=== PATIENT | female | born 1985 | race Caucasian/White ===

== ENCOUNTER 2018-11-20 20:29 | Emergency (ER) | payer SELFPAY ==
--- NOTE | 2018-11-20 20:46 | PDOC ---
Rapid Medical Evaluation Time Seen by Provider: 11/20/18 20:44 Medical Evaluation: Allergies Allergy/AdvReac Type Severity Reaction Status Date / Time No Known Allergies Allergy Verified 04/06/16 08:21 11/20/18 20:45 HIP: 4 weeks gravid with bleeding PV PE: Deferred ORDERS: LABS Discharge Disposition - Diagnosis Threatened - Referrals - Patient Instructions - Post Discharge Activity
[2018-11-20 20:48] VITALS: BP 125/58; PULSE 70; TEMP 99; BMI 33.2
[2018-11-20 22:00] LABS: BASO % 0.6 % (0-2.0); HEMATOCRIT 40.1 % (32.4-45.2); HEMOGLOBIN 13.4 GM/dL (10.7-15.3); LYMPH % 30.4 % (8-40); MCH 29.8 pg (25.7-33.7); MCHC 33.4 g/dl (32.0-36.0); MEAN CELL VOLUME 89.3 fl (80-96); MEAN PLT VOLUME 7.5 fl (7.5-11.1); MONO % 6.1 % (3.8-10.2); NEUT % 61.9 % (42.8-82.8); PLATELET COUNT 296 K/MM3 (134-434); RBC 4.49 M/mm3 (3.60-5.2); RDW 13.9 % (11.6-15.6); WHITE BLOOD COUNT 9.4 K/mm3 (4.0-10.0)
--- NOTE | 2018-11-20 22:02 | PDOC ---
History of Present Illness - General Chief Complaint: Vaginal Bleeding Stated Complaint: VAGINAL BLEEDING Time Seen by Provider: 11/20/18 20:44 History Source: Patient Exam Limitations: No Limitations - History of Present Illness Travel History: No Initial Comments: 11/20/18 22:03 HISTORY OF PRESENT ILLNESS: 33-year-old prima presents emergency department for evaluation of lower back pain and vaginal bleeding starting today. Patient reports her last menstrual period was 10/07 which she has irregular menses requiring oral contraception for menses regulation. Patient reports dysuria but denies hematuria, urinary frequency. Patient denies any bowel irregularities or rectal bleeding. No recent travel or sick contacts. PAST MEDICAL HISTORY: Denies past medical history SURGICAL HISTORY: Denies ALLERGIES: No known drug allergies REVIEW OF SYSTEMS General/Constitutional: Denies fever or chills. Denies weakness, weight change. HEENT: Denies change in vision. Denies ear pain or discharge. Denies sore throat. Cardiovascular: Denies chest pain or shortness of breath. Respiratory: Denies cough, wheezing, or hemoptysis. Gastrointestinal: Denies nausea, vomiting, diarrhea or constipation. Denies rectal bleeding. Genitourinary: see HPI Musculoskeletal: Denies joint or muscle swelling or pain. Denies neck or back pain. Skin and breasts: Denies rash or easy bruising. Neurologic: Denies headache, vertigo, loss of consciousness, or loss of sensation. Psychiatric: Denies depression or anxiety. Endocrine: Denies increased thirst. Denies abnormal weight change. Hematologic/Lymphatic: Denies anemia, easy bleeding, or history of blood clots. Allergic/Immunologic: Denies hives or skin allergy. Denies latex allergy. PHYSICAL EXAM General Appearance: Well-appearing, appropriately dressed. No apparent distress , no intoxication. Respiratory/Chest: Lungs CTAB. No shortness of breath, chest tenderness, respiratory distress, accessory muscle use. No crackles, rales, rhonchi, stridor , wheezing, dullness Cardiovascular: RRR. S1, S2. No JVD, murmur, bradycardia, tachycardia. Gastrointestinal/Abdominal: Normal bowel sounds. Abdomen soft, non-distended. No tenderness or rebound tenderness. No organomegaly, pulsatile mass, guarding, hernia, hepatomegaly, splenomegaly. Musculoskeletal/Extremities: Normal inspection. FROM of all extremities, normal capillary refill. Pelvis Stable. No CVA tenderness. No tenderness to extremities, pedal edema, swelling, erythema or deformity. Past History - Past Medical History Allergies/Adverse Reactions: Allergies Allergy/AdvReac Type Severity Reaction Status Date / Time No Known Allergies Allergy Verified 11/20/18 20:45 Home Medications: Ambulatory Orders Diphenhydramine HCl [Benadryl -] 25 mg PO Q6H #28 capsule 04/06/16 predniSONE [Deltasone -] 20 mg PO DAILY #4 tablet 04/06/16 Epinephrine [Epipen 2-Getachew] 0.3 mg IJ ASDIR PRN #1 kit 04/07/16 Ranitidine HCl [Zantac] 150 mg PO BID PRN #14 tablet 04/07/16 predniSONE [Deltasone -] 60 mg PO DAILY #12 tablet 04/07/16 95/Iron Fum/Folic/Dha [ + Dha Combo Pack] 1 each PO DAILY #30 combo..pkg 11/20/18 COPD: No - Suicide/Smoking/Psychosocial Hx Smoking History: Never smoked Hx Alcohol Use: No Drug/Substance Use Hx: No Substance Use Type: None *Physical Exam - Vital Signs Last Vital Signs Temp Pulse Resp BP Pulse Ox 99 F 70 18 125/58 L 97 11/20/18 20:45 11/20/18 20:45 11/20/18 20:45 11/20/18 20:45 11/20/18 20:45 ED Treatment Course - LABORATORY CBC & Chemistry Diagram: 11/20/18 21:50 11/20/18 22:10 Medical Decision Making - Medical Decision Making 11/20/18 22:07 A/P: 33-year-old woman with vaginal bleeding in early Differential diagnosis includes but is not limited to-ectopic , molar , incomplete , completed , threatened AB, urinary tract infection, bacterial vaginosis Basic labs including type and screen and Beta-HCG urine TVUS reassess 11/20/18 23:30 Transvaginal ultrasound as read by Dr. Mejia: Single intrauterine gestation sac compatible with 6 weeks gestation. No pole is identified. Correlation with serial quantitative serum beta hCG and follow-up ultrasound is needed. Simple cyst/dominant follicle/corpus luteum cyst at the right ovary measuring 2.4 cm There is a small amount of free fluid in the right adnexa. Beta hCG 34,736. Laboratory testing is unremarkable. Urinalysis notable for 3+ blood and trace ketones without signs of infection noted. I will discharge the patient home follow-up with OB or return to ER in 2 days for reevaluation. *DC/Admit/Observation/Transfer Diagnosis at time of Disposition: Threatened - Discharge Dispostion Disposition: HOME Condition at time of disposition: Fair Decision to Admit order: No - Prescriptions Prescriptions: 95/Iron Fum/Folic/Dha [ + Dha Combo Pack] 1 each PO DAILY #30 combo..pkg - Referrals - Patient Instructions Additional Instructions: Return to emergency department or your benefits specialist recruiter in 2 days for repeat blood work and ultrasound. Return to emergency department sooner if you're soaking more than 2 pads per hour. Take vitamins once a day. Call your [facility] for initial visit. Thank you very much for choosing us to provide your emergent health care needs. - Post Discharge Activity
--- NOTE | 2018-11-20 22:02 | PDOC ---
*Physical Exam - Vital Signs Last Vital Signs Temp Pulse Resp BP Pulse Ox 99 F 70 18 125/58 L 97 11/20/18 20:45 11/20/18 20:45 11/20/18 20:45 11/20/18 20:45 11/20/18 20:45 ED Treatment Course - LABORATORY CBC & Chemistry Diagram: 11/20/18 21:50 Medical Decision Making - Medical Decision Making 11/20/18 22:0 Patient seen by the advanced practice provider under my direct supervision. Ancillary testing reviewed as necessary. I agree with plan as outlined by the advanced practice provider. *DC/Admit/Observation/Transfer Diagnosis at time of Disposition: Threatened - Referrals - Patient Instructions - Post Discharge Activity
--- NOTE | 2018-11-20 22:02 | PDOC ---
*Physical Exam - Vital Signs Last Vital Signs Temp Pulse Resp BP Pulse Ox 99 F 70 18 125/58 L 97 11/20/18 20:45 11/20/18 20:45 11/20/18 20:45 11/20/18 20:45 11/20/18 20:45 - Physical Exam Comments: 11/20/18 22:02 The patient was examined by [SURENDRA Damon] under my direct supervision. I personally evaluated the patient. I concur with the above findings and the plan of care. ED Treatment Course - LABORATORY CBC & Chemistry Diagram: 11/20/18 21:50 *DC/Admit/Observation/Transfer Diagnosis at time of Disposition: Threatened - Referrals - Patient Instructions - Post Discharge Activity
[2018-11-20 22:24] LABS: HCG,QUALITATIVE URINE Positive
[2018-11-20 22:29] LABS: EPI CELLS 2.3 /HPF (0-5/HPF); URINE APPEARANCE CLOUDY; URINE BACTERIA 363.1 /hpf (NEGATIVE); URINE BILIRUBIN NEGATIVE (NEGATIVE); URINE CASTS 1 /lpf (0-8); URINE COLOR YELLOW; URINE GLUCOSE (UA) NEGATIVE (NEGATIVE); URINE KETONE TRACE (NEGATIVE); URINE LEUK ESTERASE TRACE (NEGATIVE); URINE NITRITE NEGATIVE (NEGATIVE); URINE PROTEIN NEGATIVE (NEGATIVE); URINE RBC 102 /hpf (0-4); URINE UROBILINOGEN 0.2 mg/dL (0.2-1.0); URINE WBC 7 /hpf (0-5)
[2018-11-20 22:30] LABS: INR 0.99 (0.83-1.09); PROTHROMBIN TIME (PATIENT) 11.7 SEC (9.7-13.0)
--- NOTE | 2018-11-20 23:04 | PDOC ---
*Physical Exam - Vital Signs Last Vital Signs Temp Pulse Resp BP Pulse Ox 99 F 70 18 125/58 L 97 11/20/18 20:45 11/20/18 20:45 11/20/18 20:45 11/20/18 20:45 11/20/18 20:45 ED Treatment Course - LABORATORY CBC & Chemistry Diagram: 11/20/18 21:50 11/20/18 22:10 - ADDITIONAL ORDERS Additional order review: Laboratory Results 11/20/18 11/20/18 22:10 21:50 PT with INR 11.70 INR 0.99 Urine Color Yellow Urine Appearance Cloudy Urine pH 7.0 Ur Specific [place] 1.027 Urine Protein Negative Urine Glucose (UA) Negative Urine Ketones Trace H Urine Blood 3+ H Urine Nitrite Negative Urine Bilirubin Negative Urine Urobilinogen 0.2 Ur Leukocyte Esterase Trace Urine WBC (Auto) 7 Urine RBC (Auto) 102 Urine Casts (Auto) 1 U Epithel Cells (Auto) 2.3 Urine Bacteria (Auto) 363.1 Urine HCG, Qual Positive 11/20/18 21:50 RBC 4.49 MCV 89.3 MCHC 33.4 RDW 13.9 MPV 7.5 Neutrophils % 61.9 Lymphocytes % 30.4 Monocytes % 6.1 Eosinophils % 1.0 Basophils % 0.6 Medical Decision Making - Medical Decision Making 11/20/18 23:09 Patient seen by the advanced practice provider under my direct supervision. Ancillary testing reviewed as necessary. I agree with plan as outlined by the advanced practice provider. *DC/Admit/Observation/Transfer Diagnosis at time of Disposition: Threatened - Referrals - Patient Instructions - Post Discharge Activity
[2018-11-20 23:12] LABS: CREATININE 0.6 mg/dL (0.55-1.3)
== END 2018-11-21 00:04 | disposition home or self-care (01) ==
LOC: JER 20:29
DX: O26.891 Other specified pregnancy related conditions, first trimester (principal); O20.0 Threatened abortion; Z3A.01 Less than 8 weeks gestation of pregnancy
CPT/HCPCS: 36415; 76817-TC; 80048; 81003; 84702; 84703; 85025; 85610; 86850; 86900; 86901; 87086; 87186; 99281-25

== ENCOUNTER 2018-12-30 14:07 | Emergency (ER) | payer OTHER | END 2018-12-30 18:44 | disposition home or self-care (01) | LOC: JER 14:07 ==

== ENCOUNTER 2022-12-02 17:46 | Emergency (ER) | payer OTHER ==
[2022-12-02] MEDS ORDERED: diazePAM 2 MG TABLET PO ONE (18:08)
[2022-12-02] MEDS ORDERED: KETOROLAC TROMETHAMINE 30 MG/1 ML VIAL IM ONE (18:08)
[2022-12-02] MEDS ORDERED: ACETAMINOPHEN 325 MG TABLET (FP) PO ONE (18:08)
[2022-12-02] MEDS ORDERED: diazePAM 2 MG TABLET ONE (18:14)
[2022-12-02] MEDS ORDERED: KETOROLAC TROMETHAMINE 30 MG/1 ML VIAL ONE (18:15)
[2022-12-02] MEDS ORDERED: ACETAMINOPHEN 500 MG TABLET (FP) ONE (18:19)
[2022-12-02 19:08] VITALS: RESP 20
[2022-12-02 21:05] VITALS: BP 111/56; PULSE 105; TEMP 98
== END 2022-12-02 21:30 | disposition home or self-care (01) ==
LOC: JERFT 17:46
PROC: 3E0233Z Introduction of Anti-inflammatory into Muscle, Percutaneous Approach (ICD-10-PCS; principal; 2022-12-02)
DX: R51.9 Headache, unspecified (principal); M54.9 Dorsalgia, unspecified; Y04.8XXA Assault by other bodily force, initial encounter; Y92.410 Unspecified street and highway as the place of occurrence of the external cause; Y93.01 Activity, walking, marching and hiking
CPT/HCPCS: 70450-TC; 99284-25